=== PATIENT | female | born 1970 | race Two or more races ===

== ENCOUNTER 2018-10-24 20:34 | Emergency (ER) | payer SELFPAY ==
[~2018-10-24] VITALS: Ht 157.5 cm; Wt 57.6 kg
--- NOTE | 2018-10-24 20:38 | NUR ---
[id number] FROM STREETS FOR ETOH. FOUND SLEEPING ON FLOOR. -TRAUMA. ; PT VERBALLY RESPONSIVE, AMS D/T ETOH. PT ON MONITOR, VSS, NAD NOTED, PENDING ER PROVIDER JI
[2018-10-24 21:26] LABS: BASOPHILS # (AUTO) 0.1 /CMM (0.0-0.2); BASOPHILS % (AUTO) 0.7 % (0.0-2.0); EOSINOPHILS % (AUTO) 1.8 % (0.0-6.0); HEMATOCRIT 46 % (33-45); HEMOGLOBIN 14.9 g/dL (11.5-14.8); LYMPHOCYTES % (AUTO) 35.5 % (20.0-44.0); MEAN CORPUSCULAR HGB CONC 33 g/dl (31.0-36.0); MEAN CORPUSCULAR VOLUME 88 fL (82-100); MONOCYTES # (AUTO) 0.8 /CMM (0.1-1.30); MONOCYTES % (AUTO) 6.7 % (2.0-12.0); NEUTROPHILS # (AUTO) 6.2 /CMM (1.8-8.9); NEUTROPHILS % (AUTO) 55.3 % (43.0-81.0); PLATELET COUNT (AUTO) 335 /CMM (150-450); RED BLOOD CELL COUNT(AUTO) 5.14 MIL/uL (4.0-5.2); WHITE BLOOD COUNT (AUTO) 11.2 K/uL (4.3-11.0)
[2018-10-24] MEDS ORDERED: OLANZAPINE 10 MG VIAL IM ONE ×2 (21:28→21:30)
[2018-10-24] MEDS ORDERED: IV NS 0.9% 1,000 ML BAG IV ONE (21:30)
[2018-10-24 21:34] LABS: CALCIUM, SERUM 9.2 mg/dL (8.5-10.1); CARBON DIOXIDE 28 mmol/L (21-32); CHLORIDE 103 mmol/L (98-107); CREATININE 0.7 mg/dL (0.6-1.3); GLUCOSE 129 mg/dL (74-106); POTASSIUM 4.2 mmol/L (3.5-5.1); SODIUM SERUM 138 mmol/L (136-145); UREA NITROGEN, BLOOD 23 mg/dL (7-18)
[2018-10-24 21:41] LABS: ALANINE AMINOTRANSFERASE 36 U/L (12-78); ALBUMIN 3.4 g/dL (3.4-5.0); ALCOHOL, BLOOD 312 mg/dL (0-0); ALKALINE PHOSPHATASE 122 U/L (46-116); ASPARTATE AMINOTRANSFERASE 19 U/L (15-37); BILIRUBIN,TOTAL 0.1 mg/dL (0.2-1.0); SALICYLATE 0.9 mg/dL (2.8-20.0); TOTAL PROTEIN, SERUM 7.5 g/dL (6.4-8.2)
[2018-10-24 21:42] LABS: ACETAMINOPHEN < 10 ug/ml (10-30)
[2018-10-24 21:59] LABS: SERUM AMMONIA 11 umol/L (11-32)
[2018-10-24 22:06] LABS: APPEARANCE,URINE Clear (CLEAR); BILIRUBIN,URINE Negative (NEGATIVE); BLOOD, URINE Negative Ery/uL (NEGATIVE); COLOR,URINE Yellow (YELLOW); KETONES,URINE Trace (NEGATIVE); LEUKOCYTE ESTERASE ,URINE Negative (NEGATIVE); NITRITE, URINE Negative (NEGATIVE); PROTEIN,URINE Negative (NEGATIVE); UGLUCOSE Negative (NEGATIVE); UROBILINOGEN,URINE 0.2 EU/dL (0.2)
--- NOTE | 2018-10-24 22:30 | NUR ---
Patient is resting comfortably in bed with eyes closed. Easily aroused. VSS
[2018-10-24] MEDS ORDERED: LORAZEPAM INJ 2 MG/ML VIAL ONE (22:38)
[2018-10-24] MEDS ORDERED: diphenhydrAMINE HCL 50 MG/ML VIAL ONE (22:38)
[2018-10-24 22:42] LABS: THYROID STIMULATING HORMONE < 0.007 uIU/mL (0.358-3.74)
[2018-10-24] MEDS ORDERED: diphenhydrAMINE HCL 50 MG/ML VIAL IV ONE (23:00)
[2018-10-24] MEDS ORDERED: LORAZEPAM INJ 2 MG/ML VIAL IV ONE (23:00)
--- NOTE | 2018-10-25 02:07 | NUR ---
Patient is resting comfortably in bed with eyes closed. Easily aroused. VSS
--- NOTE | 2018-10-25 05:30 | NUR ---
IV removed. Catheter intact and site benign. Pressure and 4x4 applied to site. No bleeding noted.
--- NOTE | 2018-10-25 05:58 | NUR ---
PT A/OX4. PT ambulatory with a steady gait. Pt vital signs within normal limits. Pt requesting to be discharged home. Patient discharged to home in stable condition. Written and verbal after care instructions given. Patient verbalizes understanding of instruction.
[2018-10-25 05:59] VITALS: BP 117/59
--- NOTE | 2018-10-25 06:02 | NUR ---
ASSUMED CARE OF PT UPON DISCHARGE. PT AMBULATED OUT WITH STEADY GAIT NOTED. PT STATED SHE IS GOING TO CALL HER TO PICK HER UP. Patient discharged to home in stable condition. Written and verbal after care instructions given. Patient verbalizes understanding of instruction.IV removed. Catheter intact and site benign. Pressure and 4x4 applied to site. No bleeding noted.
== END 2018-10-25 06:00 | disposition home or self-care (01) ==
LOC: ER 20:37 → EDBD 20:37 → ER 10-25 06:00
DX: F10.129 Alcohol abuse with intoxication, unspecified (principal); F15.10 Other stimulant abuse, uncomplicated; E05.90 Thyrotoxicosis, unspecified without thyrotoxic crisis or storm; E86.0 Dehydration; R40.4 Transient alteration of awareness; Y90.9 Presence of alcohol in blood, level not specified
CPT/HCPCS: 36415; 70450; 71045; 80048; 80076; 80305; 80307; 80329; 81001; 82140; 82962; 84439; 84443; 84481; 84484; 84703; 85025; 93005; 96361; 96372; 96374; 96375; 99284; A4606; G0480; J1200; J2060; J3490; J7030; 81000-TC